=== PATIENT | male | born 1975 | race Caucasian/White ===

== ENCOUNTER 2017-03-01 09:28 | Day surgery (SDC) | payer BC ==
[2017-02-27 15:33] VITALS: BMI 30.7
[~2017-03-01 09:28] MED LIST: DEXAMETHASONE SOD PHOSPHATE 10 MG/ML 1 ML VIAL IV ONE; FAMOTIDINE 20 MG/2 ML VIAL IV ONE; HYDROmorphone 1 MG/ML 1 ML SYRINGE IVP PRN; LACTATED RINGERS 1,000 ML IV SCH; MIDAZOLAM 2 MG/2 ML VIAL IV PRN; ONDANSETRON 4 MG/2 ML VIAL IVP ONE; Pre Op ABX Message 1 EACH MISC MISCELLANE ONE; SCOPOLAMINE 1.5MG/72HR PATCH TRANSDERM ONE
[2017-03-01] MEDS ORDERED: LIDOCAINE 1% 20 ML VIAL (10MG/ML) FOR IV START INTRADERMA ONE (09:54)
[2017-03-01 09:58] VITALS: TEMP 97.2
[2017-03-01] MEDS ORDERED: fentaNYL (PF) 50 MCG/ML 2 ML AMP ONE (11:23)
[2017-03-01] MEDS ORDERED: PROPOFOL 10 MG/ML 20 ML VIAL IV ONE (11:23)
[2017-03-01] MEDS ORDERED: KETAMINE 10 MG/ML 20 ML VIAL ONE (11:23)
[2017-03-01] MEDS ORDERED: MIDAZOLAM 2 MG/2 ML VIAL ONE (11:23)
[2017-03-01] MEDS ORDERED: CIPROFLOXACIN-DEXAMETH 0.3-0.1% DROPS 7.5 ML BTL LEFT EAR ONE (11:34)
--- NOTE | 2017-03-01 12:02 | P.OP ---
Date of Procedure: 03/01/17 Preoperative Diagnosis: Chronic otitis media with effusion left ear Postoperative Diagnosis: Same Procedure(s) Performed: Left-sided direct microscopic tympanostomy and tube placement utilizing an ultraseal tube Anesthesia: MAC Surgeon: Samuel Luna Estimated Blood Loss (ml): 0 Pathology: none sent Condition: stable Disposition: PACU Indications for Procedure: This patient was found have a persistent left middle ear effusion. Ventilation was recommended. Operative Findings: Thick viscous white middle ear effusion Description of Procedure: This patient was taken to the operative room and placed in the supine position. A general inhalation anesthetic was administered the patient by mask and subsequently monitored throughout the entire case by the department of anesthesia. The left ear was visualized with a variable focal length Zeiss microscope. Tympanostomy incision was made inferiorly thick fluid was suctioned and an ultraseal tube was placed with an alligator forceps and a house pick. The patient tolerated this well. Ofloxacin drops were instilled a cottonball was placed on the outer ear canal. Follow-up is scheduled for the next few weeks for recheck. Postoperative audiogram is pending
[2017-03-01 12:46] VITALS: BP 136/60; PULSE 83; RESP 18
== END 2017-03-01 12:56 | disposition home or self-care (01) ==
LOC: OR 09:28
PROVIDERS: ATTEND Otolaryngology
DX: H65.492 Other chronic nonsuppurative otitis media, left ear (principal); H90.12 Conductive hearing loss, unilateral, left ear, with unrestricted hearing on the contralateral side; H69.80 Other specified disorders of Eustachian tube, unspecified ear; F17.200 Nicotine dependence, unspecified, uncomplicated; K21.9 Gastro-esophageal reflux disease without esophagitis; Z79.899 Other long term (current) drug therapy; Z79.51 Long term (current) use of inhaled steroids; Z79.891 Long term (current) use of opiate analgesic; Z79.52 Long term (current) use of systemic steroids
CPT/HCPCS: 69436; J2250; J1100; J2405; J3010; J2704

== ENCOUNTER → 2019-07-16 | Outpatient (CLI) | payer BC ==
--- NOTE | 2019-07-16 22:37 | MR ---
EXAMINATION TYPE: MR knee LT wo con DATE OF EXAM: 07/16/2019 COMPARISON: NONE HISTORY: Knee pain for 5 days, no trauma TECHNIQUE: Multiplanar, multisequence images of the knee is performed without IV contrast. FINDINGS: MEDIAL MENISCUS: Anterior horn shows some anterior truncation with adjacent cystic change sagittal im age 27. Posterior horn shows marked abnormal signal appears to extend to the superior articular surfa ce sagittal image 24. LATERAL MENISCUS: Anterior and posterior horns are intact without tear. CRUCIATE LIGAMENTS: The anterior and posterior cruciate ligaments are intact and unremarkable. COLLATERAL LIGAMENTS: The medial collateral ligament and lateral collateral ligament complex are inta ct and unremarkable. EXTENSOR MECHANISM: Visualized quadriceps and patellar tendons are intact. EFFUSION: No significant suprapatellar joint effusion. POPLITEAL CYST: No popliteal/rice cyst. TRICOMPARTMENT SPACES: Lolf-[id number] narrowing patellofemoral compartment most prominent inferiorl y with mild spurring CARTILAGE: Some chondromalacia patella with early fissuring of cartilage along the posterior patellar pole. BONE MARROW SIGNAL: No focal abnormal marrow signal is appreciated. OTHER: Cystic change posterior medial aspect of the knee sagittal image 24 reference possible synovia l cysts. IMPRESSION: 1. ParaMeniscal cyst formation consistent with meniscal tearing of the anterior horn medial meniscus. 2. Significant intrasubstance but suspected full-thickness tear posterior horn medial meniscus. 3. Nabg-ml-xrthpbut patellofemoral joint arthropathy as detailed above.
== END | disposition home or self-care (01) ==
LOC: RADMRIMAIN 21:12
PROVIDERS: ATTEND Family Medicine
DX: S83.242A Other tear of medial meniscus, current injury, left knee, initial encounter (principal); M17.12 Unilateral primary osteoarthritis, left knee